=== PATIENT | male | born 1960 | race Caucasian/White ===

== ENCOUNTER → 2018-04-13 | Outpatient (REF) | payer OTHER ==
[2018-04-17 00:37] LABS: Lyme Disease IgG/IgM Antibodie <0.91 ISR (0.00-0.90); Lyme Disease IgM Ab Quantitati <0.80 index (0.00-0.79)
== END ==
LOC: M LAB REF 13:40
DX: Z11.59 Encounter for screening for other viral diseases (principal)

== ENCOUNTER → 2021-05-22 | Outpatient (CLI) | payer BC, OTHER ==
--- NOTE | 2021-05-22 10:34 | REP ---
INDICATION: RIGHT HIP PAIN COMPARISON: None. TECHNIQUE: AP and frog-lateral views of the right hip FINDINGS: Moderate early advanced degenerative changes include periarticular sclerosis, near complete joint space obliteration, subtle subchondral heterogeneity and possible small cystic changes as well as osteophyte formation along the acetabular rim and femoral head. No obvious acute fracture or dislocation. IMPRESSION: Moderate/early advanced degenerative changes <Electronically signed by Sancho Ramos > 05/22/21 1036
== END ==
LOC: M RAD 09:53
PROVIDERS: ATTEND Internal Medicine
DX: M16.11 Unilateral primary osteoarthritis, right hip (principal)

== ENCOUNTER → 2021-09-03 | Outpatient (REF) | payer BC, OTHER ==
[2021-09-03 18:26] LABS: PERCENT SATURATION 40.1 % (19.7-50.0)
== END ==
LOC: M LAB REF 16:35
PROVIDERS: ATTEND Internal Medicine
DX: Z01.818 Encounter for other preprocedural examination (principal)

== ENCOUNTER → 2021-10-01 | Outpatient (REF) | payer OTHER ==
[2021-10-01 16:46] LABS: INR 0.94; PROTHROMBIN TIME 12.9 SECONDS (12.7-14.5)
[2021-10-01 16:47] LABS: PARTIAL THROMBOPLASTIN TIME 30.7 SECONDS (25.9-37.0)
[2021-10-01 16:54] LABS: APPEARANCE, URINE CLEAR (CLEAR); BACTERIA, URINE AUTO NEGATIVE (NEGATIVE); BILIRUBIN, URINE AUTO NEGATIVE (NEGATIVE); BLOOD, URINE BLOOD 1+ (NEGATIVE); COLOR, URINE YELLOW (YELLOW); GLUCOSE, URINE (UA) AUTO NEGATIVE (NEGATIVE); KETONE, URINE AUTO NEGATIVE (NEGATIVE); LEUKOCYTE ESTERASE, URINE AUTO NEGATIVE (NEGATIVE); MUCUS, URINE SMALL (NEGATIVE); NITRITE, URINE AUTO NEGATIVE (NEGATIVE); PROTEIN, URINE AUTO NEGATIVE (NEGATIVE); RBC, URINE AUTO 0 /HPF (0-3); SQUAMOUS EPITHELIAL CELL UR AU 0 /HPF (0-6); UROBILINOGEN, URINE AUTO 0.2 mg/dL (0.0-2.0); WBC, URINE AUTO 0 /HPF (0-3)
[2021-10-01 17:00] LABS: PERCENT SATURATION 35.9 % (19.7-50.0)
== END ==
LOC: M LAB REF 16:20
PROVIDERS: ATTEND Internal Medicine
DX: Z01.810 Encounter for preprocedural cardiovascular examination (principal)

== ENCOUNTER 2023-03-26 12:02 | Day surgery (SDC) | payer BC, OTHER ==
[~2023-03-26] VITALS: Ht 180.3 cm; Wt 90.5 kg
[~2023-03-26 12:02] MED LIST: LISI10TA22 PO; MONT10TA97 PO; NS 1,000 ML IV ONE; OMEP40CA4 PO; PROA1AER2 INH; SIMV20TA22 PO; SYMB16INH INH
[2023-03-26] MEDS ORDERED: propofoL 200 MG/20 ML VIAL As Ordered ONE (13:20)
[2023-03-26] MEDS ORDERED: LIDOCAINE 2% 100MG/5ML SDV (FOR ANES.) As Ordered ONE (13:20)
[2023-03-26] MEDS ORDERED: fentaNYL 100 MCG/2 ML INJECTION As Ordered ONE (13:26)
[2023-03-26 14:06] VITALS: TEMP 96.1
[2023-03-26 14:25] VITALS: BP 156/81; O2SAT 96
== END 2023-03-26 14:37 | disposition home or self-care (01) ==
LOC: M OPP 12:02
PROVIDERS: ATTEND Internal Medicine Gastroenterology
DX: Z12.11 Encounter for screening for malignant neoplasm of colon (principal); K64.0 First degree hemorrhoids; K44.9 Diaphragmatic hernia without obstruction or gangrene; Z79.02 Long term (current) use of antithrombotics/antiplatelets; Z79.51 Long term (current) use of inhaled steroids; Z79.899 Other long term (current) drug therapy
CPT/HCPCS: 43239; 45378; 88305; J3010

== ENCOUNTER → 2023-09-01 | Outpatient (CLI) | payer BC, OTHER ==
[~2023-09-01] MED LIST changes: -NS 1,000 ML IV ONE
== END ==
LOC: M WHC 08:00
PROVIDERS: ATTEND Internal Medicine
DX: Z13.6 Encounter for screening for cardiovascular disorders (principal); Z82.49 Family history of ischemic heart disease and other diseases of the circulatory system